=== PATIENT | female | born 1985 | race Caucasian/White ===

== ENCOUNTER 2017-11-03 09:54 | Inpatient (IN) | payer MEDICAID ==
[2017-11-03] MEDS: LACTATED RINGER'S 1,000 ML IV* ×2 (10:48→11:53)
[2017-11-03] MEDS: AMPICILLIN 2 GM/NS (PMX) 100 ML IV (10:48)
[2017-11-03] MEDS ORDERED: BUTORPHANOL 1 MG INJ IV (11:00)
[2017-11-03] MEDS ORDERED: CARBOPROST 250 MCG INJ IM (11:00)
[2017-11-03] MEDS ORDERED: LIDOCAINE 1% (MPF) 30 ML INJ INJ (11:00)
[2017-11-03] MEDS ORDERED: OXYCODONE/ACETAMINOPHEN (5/325) TAB PO (11:00)
[2017-11-03] MEDS ORDERED: IBUPROFEN 600 MG TAB PO (11:00)
[2017-11-03] MEDS ORDERED: MISOPROSTOL 200 MCG TAB PR (11:00)
[2017-11-03] MEDS ORDERED: OXYTOCIN 30 UNITS/LR 500 ML IV (11:00)
[2017-11-03 11:06] LABS: ADD MAN DIFF? NO
[2017-11-03 11:12] LABS: BASOPHILS % 0.2 % (0.0-2.0); EOSINOPHILS % 0.3 % (0.0-7.0); HEMATOCRIT 44.1 % (37.0-47.0); LYMPHOCYTES # 1.1 10^3/ul (0.8-2.9); LYMPHOCYTES % 11.9 % (15.0-51.0); MEAN CORPUSCULAR HEMOGLOBIN 32.8 pg (29.0-33.0); MEAN CORPUSCULAR VOLUME 96.3 fl (82.0-101.0); MEAN PLATELET VOLUME 10.4 fl (7.4-10.4); MONOCYTE # 0.6 10^3/ul (0.3-0.9); MONOCYTES % 6.8 % (0.0-11.0); NEUTROPHIL # 7.4 10^3/ul (1.6-7.5); NEUTROPHILS % 80.3 % (39.0-77.0); PLATELET COUNT 159 10^3/UL (140-415); RED BLOOD COUNT 4.58 10^6/ul (4.20-5.40); RED CELL DISTRIBUTION WIDTH 12.5 % (11.5-14.5)
[2017-11-03 11:12] LABS: WHITE BLOOD COUNT 9.3 10^3/ul (4.8-10.8)
[2017-11-03] MEDS: BUTORPHANOL 2 MG INJ IV (11:18)
[2017-11-03 11:37] LABS: PARTIAL THROMBOPLASTIN TIME 26.5 Sec (25.0-35.0)
[2017-11-03] MEDS ORDERED: FENTAnyl 2MCG/ML-ROPIV 0.2% 100 ML (11:52)
[2017-11-03] MEDS ORDERED: DIPHENHYDRAMINE 50 MG INJ IV (12:00)
[2017-11-03] MEDS ORDERED: ONDANSETRON 4 MG INJ IV ×2 (12:00→18:00)
[2017-11-03] MEDS ORDERED: NALOXONE (0.4 MG/ML) INJ IV (12:00)
[2017-11-03] MEDS ORDERED: FENTAnyl 2MCG/ML-ROPIV 0.2% 100 ML BAG EPI (12:00)
[2017-11-03 12:50] LABS: INR 0.98; PROTIME 13.1 Sec (11.9-14.9)
[2017-11-03] MEDS: OXYTOCIN 30 UNITS/LR 500 ML IV ×4 (13:13→18:56)
[2017-11-03] MEDS: METHYLERGONOVINE 0.2 MG INJ IM (13:21)
[2017-11-03] MEDS ORDERED: AMPICILLIN 1 GM/NS (PMX) 50 ML IV (15:00)
[2017-11-03] MEDS: IBUPROFEN 600 MG TAB PO ×3 (17:56→23:40)
[2017-11-03] MEDS ORDERED: HYDROCODONE/APAP (5/325) TAB PO ×2 (18:00)
[2017-11-03] MEDS ORDERED: ACETAMINOPHEN 325 MG TAB PO (18:00)
[2017-11-03] MEDS ORDERED: DIBUCAINE 1% 30 GM OINT PR (18:00)
[2017-11-03] MEDS ORDERED: OXYCODONE/ASPIRIN (4.88/325) TAB PO ×2 (18:00)
[2017-11-03] MEDS: LANOLIN 7 GM TUBE TOP (18:13)
[2017-11-03] MEDS: BENZOCAINE 20% 56 ML SPRAY TOP (18:13)
[2017-11-03] MEDS: WITCH HAZEL/GLYCERIN PAD PR (18:13)
[2017-11-03 19:40] LABS: RAPID PLASMA REAGIN NONREACTIVE (NR)
[2017-11-03] MEDS: SENNA/DOCUSATE NA (8.6MG/50MG) TAB PO (21:08)
[2017-11-04] MEDS: IBUPROFEN 600 MG TAB PO ×4 (05:35→23:26)
[2017-11-04] MEDS: SENNA/DOCUSATE NA (8.6MG/50MG) TAB PO ×2 (08:53→21:46)
[2017-11-04 08:57] LABS: ADD MAN DIFF? NO
[2017-11-04 09:04] LABS: WHITE BLOOD COUNT 12.3 10^3/ul (4.8-10.8)
[2017-11-04 09:04] LABS: BASOPHILS % 0.2 % (0.0-2.0); EOSINOPHILS # 0.2 10^3/ul (0.0-0.5); EOSINOPHILS % 1.2 % (0.0-7.0); HEMATOCRIT 34.7 % (37.0-47.0); HEMOGLOBIN 11.6 g/dl (12.0-16.0); LYMPHOCYTES # 1.5 10^3/ul (0.8-2.9); LYMPHOCYTES % 11.8 % (15.0-51.0); MEAN CORPUSCULAR HEMOGLOBIN 32.6 pg (29.0-33.0); MEAN CORPUSCULAR HGB CONC 33.4 g/dl (32.0-37.0); MEAN CORPUSCULAR VOLUME 97.5 fl (82.0-101.0); MEAN PLATELET VOLUME 10.4 fl (7.4-10.4); MONOCYTE # 0.8 10^3/ul (0.3-0.9); MONOCYTES % 6.7 % (0.0-11.0); NEUTROPHIL # 9.7 10^3/ul (1.6-7.5); NEUTROPHILS % 79.4 % (39.0-77.0); PLATELET COUNT 148 10^3/UL (140-415); RED BLOOD COUNT 3.56 10^6/ul (4.20-5.40); RED CELL DISTRIBUTION WIDTH 12.5 % (11.5-14.5)
[2017-11-04 10:13] LABS: RHOGAM PROFILE 1 1
[2017-11-05] MEDS: IBUPROFEN 600 MG TAB PO ×2 (05:37→11:55)
[2017-11-05] MEDS: MEASLES,MUMPS,RUBELLA VACCINE INJ SC* (09:59)
[2017-11-05] MEDS: SENNA/DOCUSATE NA (8.6MG/50MG) TAB PO (09:59)
== END 2017-11-05 14:00 | disposition home or self-care (01) | DRG 775 ==
LOC: OBT 09:54 → L-D 09:54 → OBT 10:28 → L-D 10:28 → PP1 16:37
PROVIDERS: Obstetrics & Gynecology
PROC: 10E0XZZ Delivery of Products of Conception, External Approach (ICD-10-PCS; principal; 2017-11-03)
PROC: 0HQ9XZZ Repair Perineum Skin, External Approach (ICD-10-PCS; 2017-11-03)
PROC: 4A1HXCZ Monitoring of Products of Conception, Cardiac Rate, External Approach (ICD-10-PCS; 2017-11-03)
DX: O70.0 First degree perineal laceration during delivery (principal); O69.81X0 Labor and delivery complicated by cord around neck, without compression, not applicable or unspecified; Z3A.39 39 weeks gestation of pregnancy; Z37.0 Single live birth
CPT/HCPCS: 62319; 85025; 85610; 85730; 86592; 86850; 86885; 86900; 86901